=== PATIENT | female | born 1975 | race Caucasian/White ===

== ENCOUNTER 2017-03-24 23:29 | Emergency (ER) | payer SELFPAY ==
--- NOTE | 2017-03-25 00:54 | NUR ---
PATIENT WAS CALLED SEVERAL TIMES BUT PATIENT WAS NOT PRESENT IN 1HR
== END 2017-03-25 00:56 | disposition left against medical advice (07) ==
LOC: ER 23:45
DX: Z53.21 Procedure and treatment not carried out due to patient leaving prior to being seen by health care provider (principal)